=== PATIENT | male | born 1985 | race Caucasian/White ===

== ENCOUNTER 2023-12-11 11:34 | Outpatient (CLI) | payer OTHER, SELFPAY ==
--- OUTSIDE RECORDS SUMMARY | 2023-12-16 08:28 | XMS_ITS | Encounter Summary ---
Author Organization [facility] Address [address] [place] [id number] Care Team Providers Care Orthotist Prosthetist Name Role Phone None Reported, Pcp Primary Care Provider Unavail able Reason for Visit * Reason Comments Med Refill Encounter Details Date Type Department Care Team (Late st Contact Info) Description 12/02/2023 Refill Department of Cardiovascular Medicine in [place], [place] [address] [place] [address] Grant Galvan M.D. [address] [place] [id number] Med Refill Social History Tobacco Use Types Packs/Day Years Used Date Smoking Tobacco: Never Smokeless Tobacco: Former Alcohol Use Standard Drinks/Week Comments Yes 0 (1 standard drink = 0.6 oz pur e alcohol) socially PHQ-2 Answer Date Recorded PHQ-2 Score 0 10/03/2022 Depression Answer Date Recor ded PHQ-9 Total Score (max 27) 0 10/03 Nutrition Answer Date Recorded Nutrition: EVOO Fat Source Unknown 09/20 Nutrition: Servings of Fruits/Vegetables per Day Not on file 09/20/2022 Dental Answer Date Recorded Dental: Regular Dentist Unknown 09/21/19 Sex and Gender Information Value Date Recorded Sex Assigned at Not on file Gender Identity Not on file Sexual Orientation Not on file documented as of this encounter Plan of Treatment Not on file documented as of this encounter Visit Diagnoses Not on filedocumented in this encounter Additional Health Concerns Assessment Noted Time PHQ-9 Depression Total Score: 0 10/04/19 1:40 PM CDT documented as of this encounter Care Teams Orthotist Prosthetist Relationship Specialty Start Date End Date None Reported, Pcp PCP - General Family Medicine 09/20/22 documented as of this encounter
--- OUTSIDE RECORDS SUMMARY | 2023-12-16 08:28 | XMS_ITS | Referral Summary ---
Author Organization [facility] Address [address] [place] [address] Care Team Providers Care Assistant Professor Sculpture Name Role Phone None Reported, Pcp Primary Care Provider Unavail able Source Comments Patient records contain information from all sites at [facility]. For routine questions regarding patient records, call [phone] during business hours, M-F 8:00 AM - 5:00 PM Central Time. Record requests for emergency care only can be directed to [phone] at any time.[facility] Encounters Date Type Department Care Team Description 12/02/2023 Refill Department of Cardiovascular Medicine in [place], [place] [address] [place] [address] Grant Galvan M.D. Med Refill from Last 3 Months Allergies No known active allergies Medications Medication Sig Dispensed Refills Start Date End Date Status aspirin 81 mg chewable tablet Chew 81 mg daily. Active nitroglycerin (NITROSTAT) 0.[address] 1 tablet (0.4 mg total) under the tongue every 5 (five) minutes as needed for chest pain. 25 tablet 12/14/2022 Active evolocumab (REPATHA SURECLICK) 140 mg/mL pen injector injection Inject 1 mL (140 mg total) under the skin every 14 (fourteen) days. 2 mL 11 12/14/2022 Active ezetimibe (ZETIA) 10 mg tablet take one tablet by mouth one time daily 90 tablet 3 03/13/2023 Active rosuvastatin (CRESTOR) 40 mg tablet take one tablet by mouth at bedtime 90 tablet 3 03/13/2023 Active lisinopriL (PRINIVIL,ZESTRIL ) 2.5 mg tablet take one tablet by mouth one time daily 90 tablet 3 03/13/2023 Active metoprolol succinate (Toprol XL) 25 mg 24 hr tablet Take 1 tablet (25 mg total) by mouth daily. Do not crush or chew. 90 tablet 12/03/2023 12/02/2024 Active metoprolol succinate (TOPROL-XL) 25 mg 24 hr tablet Take 1 tablet (25 mg total) by mouth daily. Do not crush or chew. 90 tablet 3 12/14/2022 12/03/2023 Discontinued Active Problems Problem Noted Date Diagnosed Date Overweight Body Mass Index 25-29.9 Adult 023 Hypercholesterolemia Familial 09/21/2022 Leukocytosis 09/21/2022 Bradycardia Sinus 09/21/2022 Coronary Stent Status Post 09/21/2022 Atherosclerotic Heart Diseas e Of [place] Coronary Artery Without Angina Pectoris 09/21/2022 ST Elevation Myocardial Infa rction Involving Right Coronary Artery 09/20/2022 Social History Tobacco Use Types Packs/Day Years [...] on file Sexual Orientation Not on file Last Filed Vital Signs Vital Sign Reading Time Taken Comments Blood Pressure 120/71 12/14/2022 2:05 PM CDT Pulse 57 12/14/2022 2:05 PM CDT Temperature 36.6 ??C (97.9 ??F) 09/22/2022 2:51 PM CD T Respiratory Rate 20 09/22/2022 3:00 PM CDT Oxygen Saturation 99% 09/22/2022 3:00 PM CDT Inhaled Oxygen Concentration - - Weight 83.8 kg (184 lb 11.9 oz) 12/06/2022 2:51 PM CDT Height 187 cm (6' 1.62) 12/06/2022 2:51 PM CDT Body Mass Index 23.96 12/06/2022 2:51 PM CDT Plan of Treatment Not on file Medical Devices Implanted Type Area Metal Weather Stripper Device Identifier Shelf Expiration Date Model / Serial / Lot Stnt Synergy Xd De 3.00x48 - [id number] Implanted:Qty: 1 on 09/20/2022 by Gume Avelar M.D., Ph.D. at [facility] Cardiac Stent [employer] 11/08/2023 [id number] / / [id number] Stnt Synergy Xd De 2.75x16 - [id number] Implanted:Qty: 1 on 09/20/2022 by Gume Avelar M.D., Ph.D. at [facility] [employer] 06/09/2023 [id number] / / [id number] Stnt Synergy Xd De 3.50x16 - [id number] Implanted:Qty: 1 on 09/20/2022 by Gume Avelar M.D., Ph.D. at [facility] Cardiac [employer]ent [employer] 09/14/2023 [id number] / / [id number] Procedures Procedure Name Priority Date/Time Associated Diagnosis Comments LIPID PANEL, S Routine 01/15/2023 1:47 PM CDT Hypercholesterolemi a Familial BASIC METABOLIC PANEL, S/P Routine 09/22/2022 3:00 AM CDT from Last 3 Months or Most Recently Relevant to Health Maintenance Results * Lipid Panel (01/15/2023 1:47 PM CDT) [facility] Triglycerides 47 mg/dL 01/15/2023 4:04 PM CDT NPRG Comment: ----REFERENCE VALUE---- Normal: <150 mg/dL Borderline High: 150-199 mg/dL High: 200-499 mg/dL Very High: > or =500 mg/dL Cholesterol, Total 79 mg/dL 2022 4:04 PM CDT NPRG Comment: ----REFERENCE VALUE---- Desirable: < 200 mg/dL Borderline High: 200 - 239 mg/dL High: > or = 240 mg/dL Cholesterol, LDL, Calculated 22 mg/dL 01/15/2023 4:04 PM CDT NPRG Comment: ----REFERENCE VALUE---- Desirable: <100 mg/dL Above Desirable: 100-129 mg/dL Borderline High: 130-159 mg/dL High: 160-189 mg/dL Very High: >=190 mg/dL ----ADDITIONAL INFORMATION---- LDL cholesterol calculated using the Rizo/NIH equation. Cholesterol, HDL 44 >=40 mg/dL 01/16/20 4:04 PM CDT NPRG Cholesterol, Non-HDL, Calculated 35 mg/dL 01/15/2023 4:04 PM CDT NPRG Comment: ----REFERENCE VALUE---- Desirable: <130 mg/dL Above Desirable: 130-159 mg/dL Borderline High: 160-189 mg/dL High: 190-219 mg/dL Very High: > or =220 mg/dL Fasting (8 HR or more) y 01/15/2023 3:34 PM CDT NPRG Blood (Blood, Venous) 01/15/2023 1:47 PM CDT 01/15/2023 3:34 PM CDT Grant Galvan M.D. LAB BLOOD ADD-ON [facility] [address] [place] [address], [facility] NPRG [facility] [address] [place] [address] * Basic Metabolic Panel (09/22/2022 3:00 AM CDT) Potassium, S 4.3 3.6 - 5.2 mmol/L 09/22/2022 4:24 AM CDT DTL Sodium, S 139 135 - 145 mmol/L 09/22/2022 4:24 AM CDT DTL Chloride, S 105 98 - 107 mmol/L 09/22/2022 4:24 AM CDT DTL Bicarbonate, S 24 22 - 29 mmol/L 09/22/2022 4:24 AM CDT DTL Anion Gap 10 7 - 15 09/22/2022 4:24 AM CDT DTL BUN (Blood Urea Nitrogen), S 9 8 - 24 mg/dL 09/22/2022 4:24 AM CDT DTL Creatinine 0.99 0.74 - 1.35 mg/dL 09/22/2022 4:24 AM CDT DTL Estimated GFR (eGFR) >90 >=60 mL/min/BSA 09/22/2022 4:24 AM CDT DTL Comment: Estimated GFR calculated using the 2020 CKD_EPI creatinine equation. Calcium, Total, S 9.2 8.6 - 10.0 mg/dL 09/22/2022 4:24 AM CDT DTL Glucose, S 95 70 - 140 mg/dL 09/22/2022 4:24 AM CDT DTL Blood (Blood, Venous) 09/22/2022 3:00 AM CDT 09/22/2022 3:58 AM CDT Nella Cruz APRN C.N.P., M.S.N. LAB BLOOD ADD-ON [facility] [address] [place] [address], [facility] [place] [address] [place] [address] from Last 3 Months or Most Recently Relevant to Health Maintenance Advance Directives For more information, please contact: [phone] * Full Code (Latest Code Status on File) Date Activated Date Inactivated Comments 09/20/2022 7:59 PM 09/22/2022 7:05 PM Question Answer Comments Full Code: Discussed * Full Code Date Activated Date Inactivated Comments 09/20/2022 6:16 PM 09/20/2022 7:59 PM Question Answer Comments Full Code: Discussed Care Teams Assistant Professor Sculpture Relationship Specialty Start Date End Date None Reported, Pcp PCP - General Family Medicine 09/20/22
--- OUTSIDE RECORDS SUMMARY | 2023-12-16 08:28 | XMS_ITS | Clinical Summary ---
Author Organization [facility] Address [address] [place] [address] Care Team Providers Care Volcanologist Name Role Phone None Reported, Pcp Primary Care Provider Unavail able Source Comments Patient records contain information from all sites at [facility]. For routine questions regarding patient records, call [phone] during business hours, M-F 8:00 AM - 5:00 PM Central Time. Record requests for emergency care only can be directed to [phone] at any time.[facility] Allergies No known active allergies Medications Medication Sig Dispensed Refills Start Date End Date Status aspirin 81 mg chewable tablet Chew 81 mg daily. Active nitroglycerin (NITROSTAT) 0.[address] 1 tablet (0.4 mg total) under the tongue every 5 (five) minutes as needed for chest pain. 25 tablet 11 12/14/2022 Active evolocumab (REPATHA SURECLICK) 140 mg/mL [...] Post 09/21/2022 Atherosclerotic Heart Diseas e Of [place] Coronary Artery Without Angina Pectoris 09/21/2022 ST Elevation Myocardial Infa rction Involving Right Coronary Artery 09/20/2022 Encounters Date Type Department Care Team Description 12/02/2023 Refill Department of Cardiovascular Medicine in [place], [place] [address] [place] [address] Grant Galvan M.D. Med Refill from Last 3 Months Social History Tobacco Use Types Packs/Day Years [...] 12/06/2022 2:51 PM CDT Plan of Treatment Health Maintenance Due Date Last Done Comments HIV Screening 1983 Hepatitis C Screening 1983 Pneumococcal vaccine (0-64 years) (1 of 2 - PCV) 1989 DTaP,Tdap,and Td Vaccines (1 - Tdap) 2002 Hepatitis B Vaccines (1 of 3 - 19+ 3-dose series) 2002 Depression Screening (Annual PHQ-2) 04/09/2023 Creatinine Level (Kidney Function Test) 09/23/2023 09/22/2022, 09/21/2022, 09/20/2022 Potassium Level 09/23/2023 09/22/2022, 09/21/2022, 09/20/2022 Sodium Level 09/23/2023 09/22/2022, 09/21/2022, 09/20/2022 COVID-19 Vaccine (1 - 2022-2 4 season) 2023 Office Visit for Blood Pressure Check / Re-check 12/15/2023 12/14/2022 Influenza Vaccine (#1) 2024 Lipid (Cholesterol) Screening 01/16/2028, 12/06/2022, 09/20/2022 HPV Vaccines Aged Out No longer eligi ble based on patient's age to complete this topic Medical Devices Implanted Type Area Grades 7 8 Tutor Device Identifier Shelf Expiration Date Model / Serial / Lot Stnt Synergy Xd De 3.00x48 - [id number] Implanted:Qty: 1 on 09/20/2022 by Gume Avelar M.D., Ph.D. at [facility] Cardiac Stent [employer] 11/08/2023 [id number] / / [id number] Stnt Synergy Xd De 2.75x16 - [id number] Implanted:Qty: 1 on 09/20/2022 by Gume Avelar M.D., Ph.D. at [facility] Cardiac [employer]ent [employer] 06/09/2023 [id number] / / [id number] Stnt Synergy Xd De 3.50x16 - [id number] Implanted:Qty: 1 on 09/20/2022 by Gume Avelar M.D., Ph.D. at [facility] Cardiac Stent [employer] 09/14/2023 [id number] / / [id number] Procedures Procedure Name Priority Date/Time Associated Diagnosis Comments LIPID PANEL, S Routine 01/15/2023 1:47 PM CDT Hypercholesterolemi a Familial BASIC METABOLIC PANEL, S/P Routine 09/22/2022 3:00 AM CDT from Last 3 Months or Most Recently Relevant to Health Maintenance Results * Lipid Panel (01/15/2023 1:47 PM CDT) Triglycerides 47 mg/dL 01/15/2023 4:04 PM CDT [...] CDT Grant Galvan M.D. LAB BLOOD ADD-ON [facility] [address] [place] [address], [place] NPRG [facility] [address] [place] [address] * Basic Metabolic Panel (09/22/2022 3:00 AM [...] CDT 09/22/2022 3:58 AM CDT Nella Cruz APRN, C.N.P., M.S.N. LAB BLOOD ADD-ON [facility] [address] [place] [address], [place] DTL [facility] [address] [place] [address] from Last 3 Months or Most Recently Relevant to Health Maintenance Advance Directives For more information, please contact: [phone] * Full Code (Latest Code Status on File) Date Activated Date Inactivated Comments 09/20/2022 7:59 PM 09/22/2022 7:05 PM Question Answer Comments Full Code: Discussed * Full Code Date Activated Date Inactivated Comments 09/20/2022 6:16 PM 09/20/2022 7:59 PM Question Answer Comments Full Code: Discussed Care Teams Volcanologist Relationship Specialty Start Date End Date None Reported, Pcp PCP - General Family Medicine 09/20/22
--- OUTSIDE RECORDS SUMMARY | 2023-12-16 08:28 | XMS_ITS | Clinical Summary ---
Author Organization [facility] Address [place], [place] [address] Care Team Providers Care Road Repairer Name Role Phone Pcp, No Primary Care Provider Unavailabl e Allergies No known active allergies Medications No known medications Immunizations Name Administration Dates Next Due Td (Age >=7 Years) 05/11/2010 Family History Medical History Relation Name Comments Heart Disease Father Hyperlipidemia Father Hypertension Father Diabetes Maternal Aunt Heart Disease Maternal Grandfather Diabetes Maternal Grandmother Heart Disease Paternal Grandfather Relation Name Status Comments Father Maternal Aunt Maternal Grandfather Maternal Grandmother Mother Alive Paternal Grandfather Social History Tobacco Use Types Packs/Day Years Used Date Smoking Tobacco: Never Assessed Alcohol Use Standard Drinks/Week Comments Yes 0 (1 standard drink = 0.6 oz pur e alcohol) 8/week Sex and Gender Information Value Date Recorded Sex Assigned at Not on file Gender Identity Not on file Sexual Orientation Not on file Obstetrics History Last Filed Vital Signs Vital Sign Reading Time Taken Comments Blood Pressure 125/74 08/30/2010 9:59 AM CDT Pulse 77 08/30/2010 9:59 AM CDT Temperature 36.9 ??C (98.4 ??F) 08/30/2010 9:59 AM CD T Respiratory Rate - - Oxygen Saturation 98% 08/30/2010 9:59 AM CDT Inhaled Oxygen Concentration - - Weight 82.8 kg (182 lb 8 oz) 08/30/2010 9:59 AM CDT Height 184.3 cm (6' 0.54) 08/30/2010 9:59 AM CD T Body Mass Index 24.38 08/30/2010 9:59 AM CDT Plan of Treatment Health Maintenance Due Date Last Done Comments Tdap 1994 Depression screening for age 12+ 1995 HIV for age 15-65 1998 BMI (ht and wt on same day) for age 18+ 2001 Hepatitis C screening for ag e 18-79 2001 Lipids for age 35-44 2018 Tetanus booster 05/11/2020 05/11/2010 COVID-19 vaccine series (2022- season) 2023 Influenza for age 9-49 12/09/2023 Pneumococcal series for age 6-64 Aged Out No longer eligible based on patient's age to complete this topic Care Teams Road Repairer Relationship Specialty Start Date End Date Pcp, No . PCP - General 08/29/10
--- OUTSIDE RECORDS SUMMARY | 2023-12-16 08:28 | XMS_ITS ---
Author Organization [facility] Address [address] [place] [address] Care Team Providers Care Fiscal Manager Name Role Phone Unavailable Unavailable Unavailable Surgery Details Not on file Complications Check Surgery Details section. Procedure Estimated Blood Loss Check Surgery Details section. Procedure Findings Check Surgery Details section. Procedure Specimens Taken Check Surgery Details section.
== END 2023-12-11 11:35 | disposition home or self-care (01) ==
LOC: NFLDREF 12-16 08:26
PROVIDERS: PCP Family Medicine; Referring Provider Family Medicine; Visit Provider Family Medicine
DX: I25.10 Atherosclerotic heart disease of native coronary artery without angina pectoris (principal); E78.01 Familial hypercholesterolemia
CPT/HCPCS: 80053; 80061